=== PATIENT | male | born 1980 | race Caucasian/White ===

== ENCOUNTER 2023-09-13 19:29 | Emergency (ER) | payer BC, SELFPAY ==
[2023-09-13 19:32] VITALS: BP 142/90
--- NOTE | 2023-09-13 20:24 | ED.SKININJ ---
HPI-Injury
General
Chief Complaint: Skin Problem
Source: patient
Exam Limitations: none
Time Seen by Provider: 09/13/23 20:09
Travel History
Have you had any contact with someone who has COVID-19?: No
Do you have any symptoms of coronavirus? Fever > 100 degrees, chills, cough, shortness of breath, sore throat, loss of taste or smell, muscle aches, or headache?: No
History of Present Illness-Injury
Initial Injury comments:
43-year-old male presents with lacerations to left index and middle fingers he sustained today using utility knife. Last tetanus vaccine unknown. He notes the cut at the middle finger is at the base of his nail. He notes a throbbing sensation in
the tip of his finger. No other complaints at this time
Past History
Past History
ED Past Medical History: GERD (PUD)
ED Past Surgical History: None
Social History
Tobacco: Non-smoker
Alcohol: Occasional
Personal:
Living: with family
Family History
Family History: Negative Diabetes, Hypertension or CAD
Phy Exam
Physical Exam
Physical Exam:
General: Well-appearing male no acute respiratory distress
Skin: 1.5 cm laceration dorsal and radial aspect left middle finger at the base of the nail. Not currently bleeding. Edges are well-approximated. The nail is nonmobile no tendon involvement. There is a half a centimeter avulsion type injury to
the distal portion of the left index finger not currently bleeding superficial nature
Musculoskeletal exam: Extension and flexion of the DIP joint of the left long finger intact.
Neurologic: Good sensation and function to left fingers
Course
Orders/Labs/Results
Orders:
Orders
09/13/23 20:22
Tetanus/Diphth/Acelpertussis [Adacel] 0.5 ml IM .ONCE ONE
Vital Signs
Initial and Last Documented VS:
Initial Vital Signs
Temp Pulse Resp BP Pulse Ox
98.3 F 68 20 142/90 98
09/13/23 19:32 09/13/23 19:32 09/13/23 19:32 09/13/23 19:32 09/13/23 19:32
Last Documented Vital Signs
Temp Pulse Resp BP Pulse Ox
98.3 F 68 20 142/90 98
09/13/23 19:32 09/13/23 19:32 09/13/23 19:32 09/13/23 19:32 09/13/23 19:32
MDM/Problems Addressed
Differential Diagnosis Includes:
Lacerations noted to left long and index finger. Index finger superficial. Did discuss and recommend sutures to the left long finger however patient declined as is not bleeding and he feels though that he will okay. We will soak with saline and
Betadine to dry off, update tetanus, wrapped with sterile nonstick gauze and gauze wrap
*Critical Care Note
Total Time (30-74mins, 75-104mins- exclusive of procedures): Not Applicable
ED Attending Note
-
Portions of this chart may have been created with voice recognition software.� Occasional wrong word or��sound alike� substitutions may have occurred due to the inherent limitations of voice recognition software.
Discharge Plan
Departure
Patient Disposition: Home (Routine Discharge)
Date of Disposition: 09/13/23
Time of Disposition: 20:26
Patient with high blood pressure during this ER visit?: No
Discharge Problem:
Laceration
Instructions: Wound Care (DC)
Prescriptions:
No Action
No Current Medications
0
Referrals:
Edwige Bronson DO [Family Provider] -
Activity Restrictions/Additional Instructions:
Keep clean. Change dressing if needed. Use ibuprofen or Tylenol for pain.
Interventions
Interventions:
*Risk Screen - Suicide Last Done: 09/13/23 19:32
*General Assessment Last Done: 09/13/23 19:32
[2023-09-13] MEDS: ADACEL 0.5 ML IM (20:30)
== END 2023-09-13 20:37 | disposition home or self-care (01) ==
LOC: EMR 19:29
PROVIDERS: EMERGENCY PHYSICIAN Emergency Medicine; FAMILY PHYSICIAN Family Medicine
DX: S61.211A Laceration without foreign body of left index finger without damage to nail, initial encounter (principal); W26.0XXA Contact with knife, initial encounter; Z23 Encounter for immunization
CPT/HCPCS: 99284; 90471; 90715

== ENCOUNTER 2025-02-04 12:11 | Day surgery (SDC) | payer BC, SELFPAY ==
[2025-02-04] VITALS (8 sets, daily range): BP systolic 123–143; BP diastolic 77–99; BMI 26.9
[2025-02-04] MEDS: LOW STRENGTH ASPIRIN 324 MG PO (13:00)
[2025-02-04] MEDS: NSS 263 ML IV (13:08)
[2025-02-04] MEDS: NSS 1000 IV (15:36)
--- NOTE | 2025-02-04 20:48 | ITS.CL.PN ---
[employer] - Procedure Note
Procedure
Procedure Note:
CARDIAC CATHETERIZATION REPORT
Date of Procedure: 02/04/2025
Referring: Dr. Elias Martinez DO
Indication: dyspnea on exertion, positive cardiac stress test
PROCEDURE(S)
1. right heart catheterization
2. left heart catheterization
3. coronary angiography
ACCESS
1. 6F right radial artery (closure: radial band)
2. 5F right antecubital vein (closure: manual hemostasis)
CATHETERS
1. 5F Tenino-Kendrick
2. 6F JR4
3. 6F JL3.5
MODERATE SEDATION: 35 minutes of moderate sedation was utilized. An independent director of medical staff services was present to assist with and help manage the patient's level of consciousness and physiologic status.
HEMODYNAMIC DATA
LV 116/12 (EDP 20) mmHg
AO 118/79 (mean 97) mmHg
RA 11 mmHg
RV 30/5 (EDP 11) mmHg
PA 29/11 (mean 20) mmHg
PCWP 13 mmHg
SaO2 98.9%
SvO2 73 point %
Hb 14.5 g/dL
CO/CI 5.20/2.51 L/min/m2
SVR 1324 dsc*-5
PVR 1.3 Wood units
CORONARY ANGIOGRAPHY
Dominance: Right
LM: Large, normal
LAD: Large vessel giving rise to three moderate caliber diagonal branches. There is no coronary artery disease.
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 On nonselective angiography the vessel does not appear to have any coronary artery disease. 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
RCA: Large vessel giving rise to a moderate caliber RPDA, small RPL1, large RPL 2, small RPL3, and moderate caliber RPL4. There are trivial luminal irregularities only.
RADIATION: dose 446 mGy; DAP 39.5 Gy*cm2; fluoroscopy time 11.5 min
CONCLUSIONS
1. No coronary artery disease in a right hyperdominant dominant system. 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
2. Mildly elevated right ventricular with normal left ventricular filling pressure, normal pulmonary artery pressure, and normal cardiac output.
RECOMMENDATIONS
1. Consider outpatient CT angiogram to better define course of anomalous circumflex vessel and rule out malignant course.
2. Further workup for etiology of patient's dyspnea on exertion not related to elevated filling pressures or epicardial atherosclerotic coronary artery disease.
Copy to: Dr. Elias Martinez DO (pipelayer)
Signed: Julio Grimm MD, PhD
== END 2025-02-04 17:58 | disposition home or self-care (01) ==
LOC: CATH 12:11
PROVIDERS: ATTENDING PHYSICIAN Student in an Organized Health Care Education/Training Program; FAMILY PHYSICIAN Family Medicine; OTHER PHYSICIAN Student in an Organized Health Care Education/Training Program
DX: R06.09 Other forms of dyspnea (principal); Q24.5 Malformation of coronary vessels; K21.9 Gastro-esophageal reflux disease without esophagitis; E78.5 Hyperlipidemia, unspecified
CPT/HCPCS: 99152; 99153; 93460; C1769; C1894; Q9967